=== PATIENT | male | born 1990 | race Caucasian/White ===

== ENCOUNTER → 2017-06-08 | Outpatient (CLI) | payer BC ==
[~2017-06-08] MED LIST: ATARAX25 MG PO; IBU-8800 MG PO; MEDROL DOSEPAK4 MG PO; NKHM; PREDNISONE20 MG PO
--- NOTE | ~2017-06-08 | HM ---
[place], [place] HOLTER MONITOR REPORT NAME: JEAN PAUL ROMO UNIT #: [id number] ROOM: DOCTOR: OWEN ZHANG MD BIRTHDATE: [birth year] DOS: 06/08/2017 HOLTER MONITOR REPORT SEX: Male. INDICATION: Palpitations and cardiac fluttering. This is a 24-hour Holter monitor and time of monitoring from 8:00 a.m. to 8:00 a.m. IMPRESSION: Underlying rhythm is normal sinus rhythm. Maximum heart rate was 150, minimum heart rate was 56, atrial fibrillation burden zero, ventricular tachycardia or fib burden is zero. There were occasional premature atrial complexes and premature ventricular complexes. Total premature atrial complexes were 54 and total premature ventricular complexes were 10. No significant pauses were noted. No diary was submitted to correlate with the symptoms. Owen Zhang MD CM:HOLTER:HOLTER MONITOR REPORT [id number] OWEN ZHANG MD
== END | disposition home or self-care (01) ==
LOC: CARD 08:00
DX: I49.8 Other specified cardiac arrhythmias (principal); R00.2 Palpitations

== ENCOUNTER 2018-09-30 20:44 | Emergency (ER) | payer BC ==
[~2018-09-30] VITALS: Ht 177.8 cm; Wt 115.7 kg
--- NOTE | ~2018-09-30 | EKG ---
[place], [place] ELECTROCARDIOGRAM REPORT NAME: JEAN PAUL ROMO UNIT #: [id number] ROOM: DOCTOR: EPIPHANY DRAFT REPORT BIRTHDATE: [birth year] [facility] Test Date: 2018-09-30 Test Time: 21:08:15 Pat Name: JEAN PAUL ROMO Department: ER Room: 18 Gender: M Personal Injury Specialist: Gentry Urrutia : 1990 Requested By: TK MUNIZ Order Number: [id number] Reading MD: Nhan Camejo MD Measurements Intervals [place] Rate: 77 P: -4 IL: 137 QRS: 29 QRSD: 78 T: 9 QT: 350 QTc: 397 Interpretive Statements Sinus rhythm Electronically Signed On 10-02-2018 11:40:43 PDT by Nhan Camejo MD CM:EKGRPT:ELECTROCARDIOGRAM REPORT [id number] TK MORENO DRAFT REPORT TK MUNIZ DO
[2018-09-30 21:23] LABS: BASO % 0.4 % (0.0-1.0); EOS # 0.3 10*3/uL (0.0-0.4); EOS % 4.7 % (1.0-4.0); HEMATOCRIT 41.5 % (42.0-52.0); HEMOGLOBIN 14.2 g/dl (14.0-18.0); LYMPH # 1.7 10*3/uL (1.3-4.4); LYMPH % 25.2 % (27.0-41.0); MEAN CORPUSCULAR HGB 29.8 pg (27.0-31.0); MEAN CORPUSCULAR HGB CONC 34.2 g/dl (33.0-37.0); MEAN PLATELET VOLUME 9.9 fl (9.6-12.3); MONO # 0.5 10*3/uL (0.1-1.0); MONO % 7.5 % (3.0-9.0); NEUT # 4.2 10*3/uL (2.3-7.9); NEUT % 61.9 % (47.0-73.0); PLATELET COUNT AUTOMATED 263 10*3/uL (130-400); RED BLOOD COUNT 4.77 10*6/uL (4.50-5.90); WHITE BLOOD COUNT 6.8 10*3/uL (4.8-10.8)
[2018-09-30 21:41] LABS: ALBUMIN 3.7 gm/dl (3.1-4.5); ALKALINE PHOSPHATASE 70 U/L (45-117); BUN 9 mg/dl (7-24); SGOT/AST 43 IU/L (3-35); SGPT/ALT 73 U/L (12-78); TOTAL PROTEIN 7.4 gm/dL (6.4-8.2)
[2018-09-30 21:46] LABS: TROPONIN I < 0.015 ng/ml (<0.045)
[2018-09-30 21:54] LABS: CHLORIDE 109 mmol/L (98-107); POTASSIUM 3.7 mmol/L (3.5-5.1); SODIUM 143 mmol/L (136-145)
== END 2018-09-30 22:28 | disposition home or self-care (01) ==
LOC: ED 20:44
PROVIDERS: Student in an Organized Health Care Education/Training Program
DX: R07.89 Other chest pain (principal); Z88.8 Allergy status to other drugs, medicaments and biological substances; Z79.899 Other long term (current) drug therapy

== ENCOUNTER → 2020-02-27 | Outpatient (CLI) | payer BC | END | disposition home or self-care (01) | LOC: COVID19 12:32 | PROVIDERS: ATTEND Family Medicine | DX: U07.1 COVID-19 (principal) ==

== ENCOUNTER → 2020-02-29 | Outpatient (CLI) | payer BC | END | disposition home or self-care (01) | LOC: RAD 11:12 | PROVIDERS: ATTEND Family Medicine | DX: U07.1 COVID-19 (principal); R05 Cough; R06.02 Shortness of breath ==

== ENCOUNTER → 2020-03-11 | Outpatient (CLI) | payer BC | END | disposition home or self-care (01) | LOC: RAD 15:30 | PROVIDERS: ATTEND Family Medicine | DX: U07.1 COVID-19 (principal) ==

== ENCOUNTER → 2022-02-10 | Outpatient (CLI) | payer BC | END | disposition home or self-care (01) | LOC: US 11:00 | PROVIDERS: ATTEND Family Medicine | DX: N63.0 Unspecified lump in unspecified breast (principal) ==

== ENCOUNTER 2023-03-27 21:28 | Emergency (ER) | payer BC ==
[~2023-03-27] VITALS: Ht 177.8 cm; Wt 111.1 kg
[2023-03-27] MEDS ORDERED: TOPROL XL25 MG PO (21:48)
[2023-03-27] MEDS ORDERED: BUSPAR15 MG PO (21:49)
[2023-03-27] MEDS ORDERED: OMEPRAZOLE40 MG PO (21:49)
[2023-03-27] MEDS ORDERED: ALLEGRA ALLERG180 M2 PO (21:49)
== END 2023-03-28 00:08 | disposition home or self-care (01) ==
LOC: ED 21:28
DX: S61.412A Laceration without foreign body of left hand, initial encounter (principal); Z91.040 Latex allergy status; Z88.8 Allergy status to other drugs, medicaments and biological substances; Z98.890 Other specified postprocedural states; W26.8XXA Contact with other sharp object(s), not elsewhere classified, initial encounter; Y93.89 Activity, other specified; Y92.89 Other specified places as the place of occurrence of the external cause; Y99.8 Other external cause status

== ENCOUNTER → 2023-05-24 | Outpatient (CLI) | payer BC ==
[~2023-05-24] MED LIST changes: +ALLEGRA ALLERG180 M2 PO; +BUSPAR15 MG PO; +OMEPRAZOLE40 MG PO; +TOPROL XL25 MG PO
== END | disposition home or self-care (01) ==
LOC: US 05-03 08:30
PROVIDERS: ATTEND Family Medicine
DX: K76.89 Other specified diseases of liver (principal); K82.9 Disease of gallbladder, unspecified

== ENCOUNTER → 2024-03-16 | Outpatient (CLI) | payer BC | END | disposition home or self-care (01) | LOC: RAD 12:29 | PROVIDERS: ATTEND Family Medicine | DX: M79.671 Pain in right foot (principal) ==

== ENCOUNTER 2025-01-01 10:43 | Emergency (ER) | payer SELFPAY ==
[~2025-01-01] VITALS: Ht 177.8 cm; Wt 108.9 kg
[2025-01-01] MEDS ORDERED: ALL DAY ALLERGY10 M2 PO (11:00)
[2025-01-01] MEDS ORDERED: Lidocaine Hydrochloride 2% 10 ML AMP SC ONE (11:15)
[2025-01-01] MEDS ORDERED: Bacitracin Zinc 14 GM TUBE T ONE (11:15)
[2025-01-01] MEDS ORDERED: CEPHALEXIN 500 MG CAP PO ONE (11:15)
[2025-01-01] MEDS ORDERED: CEPHALEXIN500 M1 PO (11:28)
== END 2025-01-01 12:00 | disposition home or self-care (01) ==
LOC: ED 10:43
DX: S61.411A Laceration without foreign body of right hand, initial encounter (principal); Z88.8 Allergy status to other drugs, medicaments and biological substances; Z79.899 Other long term (current) drug therapy; W22.8XXA Striking against or struck by other objects, initial encounter; Y93.89 Activity, other specified; Y92.89 Other specified places as the place of occurrence of the external cause; Y99.8 Other external cause status